=== PATIENT | male | born 1940 | race Caucasian/White ===

== ENCOUNTER 2020-12-24 11:33 | Emergency (ER) | payer MEDICARE, OTHER ==
[~2020-12-24 11:33] MED LIST: ARICEPT10 MG PO; ASPIRIN81 MG PO; ATORVASTATIN CA80 MG PO; CEPHALEXIN500 MG PO; ELIQUIS5 MG PO; FLOMAX 0.4 MG0.4 MG PO; IBUPROFEN600 MG PO; KEFLEX CAP 500500 MG PO; MECLIZINE HCL12.5 MG PO; OMEPRAZOLE20 M1 PO; PAXIL20 MG PO; PERCOCET 5-3251 EACH PO; ROWEEPRA XR500 MG PO; SINGULAIR10 MG PO; UROXATRAL10 MG PO; ZOFRAN ODT 4 MG4 MG SL
[2020-12-24] MEDS ORDERED: ERYTHROMYCIN O3.5 GM OD (14:58)
[2020-12-24] MEDS ORDERED: CLEOCIN HCL300 MG PO (14:58)
== END 2020-12-24 15:43 | disposition home or self-care (01) ==
LOC: ER1 11:33
DX: H04.301 Unspecified dacryocystitis of right lacrimal passage (principal); E78.5 Hyperlipidemia, unspecified; Z86.73 Personal history of transient ischemic attack (TIA), and cerebral infarction without residual deficits; Z88.8 Allergy status to other drugs, medicaments and biological substances; Z87.891 Personal history of nicotine dependence
CPT/HCPCS: 99283

== ENCOUNTER 2021-03-29 20:45 | Emergency (ER) | payer MEDICARE, MEDICAID ==
[~2021-03-29 20:45] MED LIST changes: +CLEOCIN HCL300 MG PO; +ERYTHROMYCIN O3.5 GM OD
[2021-03-29 22:57] LABS: HEMOGLOBIN 8.4 gm/dl (14.0-17.5); RED BLOOD COUNT 2.97 M/UL (4.20-5.50); WHITE BLOOD COUNT 7.4 K/UL (4.5-11.0)
[2021-03-30] MEDS ORDERED: OMNICEF 300 MG300 MG PO (00:58)
[2021-03-30] MEDS ORDERED: CORTISPORIN OTI10 ML EARRT (00:58)
[2021-03-30] MEDS ORDERED: ZOFRAN ODT 4 MG4 MG PO (00:58)
== END 2021-03-30 01:15 | disposition home or self-care (01) ==
LOC: ER1 20:45
PROVIDERS: Physician Assistant
DX: N39.0 Urinary tract infection, site not specified (principal); H60.91 Unspecified otitis externa, right ear; I48.91 Unspecified atrial fibrillation; Z86.16 Personal history of COVID-19; Z88.8 Allergy status to other drugs, medicaments and biological substances
CPT/HCPCS: 80053; 81001; 83690; 85025; 87077; 87086; 87186; 96374; 99284; J2405; J7030

== ENCOUNTER → 2021-04-17 | Outpatient (CLI) | payer MEDICARE, OTHER ==
[~2021-04-17] MED LIST changes: +CORTISPORIN OTI10 ML EARRT; +OMNICEF 300 MG300 MG PO; +ZOFRAN ODT 4 MG4 MG PO
== END ==
LOC: US 09:14
DX: I77.811 Abdominal aortic ectasia (principal)
CPT/HCPCS: 93979

== ENCOUNTER 2021-10-14 12:07 | Inpatient (IN) | payer MEDICARE, OTHER ==
[~2021-10-14] VITALS: Ht 167.6 cm; Wt 64.9 kg
[~2021-10-14 12:07] MED LIST changes: +LEVETIRACETAM500 MG PO; -ROWEEPRA XR500 MG PO
[2021-10-14 13:26] LABS: HEMOGLOBIN 8.2 gm/dl (14.0-17.5); RED BLOOD COUNT 3.55 M/UL (4.20-5.50); WHITE BLOOD COUNT 15.9 K/UL (4.5-11.0)
[2021-10-14] MEDS ORDERED: ONDANSETRON HCL4 MG PO (15:58)
[2021-10-14] MEDS ORDERED: QUETIAPINE FUMA25 MG PO (15:58)
[2021-10-14] MEDS ORDERED: MELATONIN 10 M1 EACH PO (15:59)
[2021-10-15 04:07] LABS: RED BLOOD COUNT 2.81 M/UL (4.20-5.50); WHITE BLOOD COUNT 11.8 K/UL (4.5-11.0)
[2021-10-15 04:11] LABS: HEMOGLOBIN 6.6 gm/dl (14.0-17.5)
[2021-10-15 16:28] LABS: HEMOGLOBIN 7.4 gm/dl (14.0-17.5)
[2021-10-16 01:28] LABS: HEMOGLOBIN 8.7 gm/dl (14.0-17.5)
[2021-10-16 02:06] LABS: ACINETOBACTER BAUMANNII Not Detected (Negative); CANDIDA ALBICANS Not Detected (Negative); CANDIDA KRUSEI Not Detected (Negative); CANDIDA TROPICALIS Not Detected (Negative); ENTEROCOCCUS Not Detected (Negative); ESCHERICHIA COLI Not Detected (Negative); HAEMOPHILUS INFLUENZAE Not Detected (Negative); KLEBSIELLA OXYTOCA Not Detected (Negative); KLEBSIELLA PNEUMONIAE Not Detected (Negative); KPC-CARBAPENEM-RESISTANCE GENE Not Detected (Negative); PROTEUS Not Detected (Negative); PSEUDOMONAS AERUGINOSA Not Detected (Negative); SERRATIA MARCESANS Not Detected (Negative); STAPHYLOCOCCUS AUREUS Not Detected (Negative); STREP AGALACTIAE (GROUP B) Not Detected (Negative); STREP PYOGENES (GROUP A) Not Detected (Negative); STREPTOCOCCUS Not Detected (Negative); vanA/B (VANCOMYCIN RESIST GENE Not Detected (Negative)
[2021-10-16 03:30] LABS: mecA (METHICILLIN RESIST GENE DETECTED (Negative)
[2021-10-16 03:31] LABS: STAPHYLOCOCCUS DETECTED (Negative)
[2021-10-16 08:52] LABS: HEMOGLOBIN 9.9 gm/dl (14.0-17.5)
[2021-10-16 16:15] LABS: HEMOGLOBIN 9.8 gm/dl (14.0-17.5)
[2021-10-17] MEDS ORDERED: AUGMENTIN 875-1 EACH PO (12:56)
== END 2021-10-17 15:13 | disposition home or self-care (01) | DRG 100 ==
LOC: ER1 12:07 → CDU 15:18 → M/S 10-15 18:40
PROVIDERS: Emergency Medicine; Physician Assistant Medical; ADMIT Internal Medicine
DX: R56.9 Unspecified convulsions (principal); J69.0 Pneumonitis due to inhalation of food and vomit; J96.01 Acute respiratory failure with hypoxia; N17.9 Acute kidney failure, unspecified; F03.90 Unspecified dementia, unspecified severity, without behavioral disturbance, psychotic disturbance, mood disturbance, and anxiety; I48.0 Paroxysmal atrial fibrillation; K21.9 Gastro-esophageal reflux disease without esophagitis; H54.8 Legal blindness, as defined in USA; N40.0 Benign prostatic hyperplasia without lower urinary tract symptoms; D50.9 Iron deficiency anemia, unspecified; Z20.822 Contact with and (suspected) exposure to COVID-19; Z98.49 Cataract extraction status, unspecified eye; Z86.73 Personal history of transient ischemic attack (TIA), and cerebral infarction without residual deficits; Z88.8 Allergy status to other drugs, medicaments and biological substances; Z82.3 Family history of stroke; Z82.49 Family history of ischemic heart disease and other diseases of the circulatory system; D49.6 Neoplasm of unspecified behavior of brain; Z66 Do not resuscitate; Z79.01 Long term (current) use of anticoagulants; E86.0 Dehydration
CPT/HCPCS: 36415; 36430; 36600; 70450; 70551; 71045; 80048; 80053; 81001; 82550; 82553; 82803; 83605; 83735; 83874; 84439; 84443; 84484; 85014; 85018; 85025; 85027; 86850; 86900; 86901; 86920; 87040; 87077; 87150; 93005; 96374; 96375; 99285; J1953; J2543; J3370; J7070; P9016; U0002

== ENCOUNTER 2021-12-09 21:24 | Inpatient (IN) | payer MEDICARE, OTHER ==
[~2021-12-09] VITALS: Ht 182.9 cm; Wt 68.0 kg
[~2021-12-09 21:24] MED LIST changes: +AUGMENTIN 875-1 EACH PO; +MELATONIN 10 M1 EACH PO; +ONDANSETRON HCL4 MG PO; +QUETIAPINE FUMA25 MG PO
[2021-12-09 22:09] LABS: HEMOGLOBIN 10.2 gm/dl (14.0-17.5); RED BLOOD COUNT 3.75 M/UL (4.20-5.50); WHITE BLOOD COUNT 12.8 K/UL (4.5-11.0)
[2021-12-10] MEDS ORDERED: PROAIR HFA8.5 GM INH (10:59)
[2021-12-11 04:15] LABS: HEMOGLOBIN 8.4 gm/dl (14.0-17.5); RED BLOOD COUNT 3.15 M/UL (4.20-5.50); WHITE BLOOD COUNT 7.1 K/UL (4.5-11.0)
[2021-12-12 06:52] LABS: HEMOGLOBIN 8.4 gm/dl (14.0-17.5); RED BLOOD COUNT 3.12 M/UL (4.20-5.50); WHITE BLOOD COUNT 5.9 K/UL (4.5-11.0)
[2021-12-13 04:19] LABS: HEMOGLOBIN 8.5 gm/dl (14.0-17.5); RED BLOOD COUNT 3.16 M/UL (4.20-5.50); WHITE BLOOD COUNT 6.4 K/UL (4.5-11.0)
[2021-12-13] MEDS ORDERED: OMNICEF 300 MG300 MG PO (13:44)
== END 2021-12-13 15:50 | disposition home or self-care (01) | DRG 871 ==
LOC: ER1 21:24 → CDU 12-10 → MED SURG 4 12-10 12:05
PROVIDERS: Emergency Medicine; Internal Medicine; ADMIT Internal Medicine
DX: A41.50 Gram-negative sepsis, unspecified (principal); E43 Unspecified severe protein-calorie malnutrition; N30.00 Acute cystitis without hematuria; J96.11 Chronic respiratory failure with hypoxia; F01.51 Vascular dementia, unspecified severity, with behavioral disturbance; Z20.822 Contact with and (suspected) exposure to COVID-19; J44.9 Chronic obstructive pulmonary disease, unspecified; N28.89 Other specified disorders of kidney and ureter; N40.0 Benign prostatic hyperplasia without lower urinary tract symptoms; D63.1 Anemia in chronic kidney disease; R65.20 Severe sepsis without septic shock; H47.619 Cortical blindness, unspecified side of brain; N18.30 Chronic kidney disease, stage 3 unspecified; K21.9 Gastro-esophageal reflux disease without esophagitis; I48.0 Paroxysmal atrial fibrillation; Z87.891 Personal history of nicotine dependence; Z86.73 Personal history of transient ischemic attack (TIA), and cerebral infarction without residual deficits; Z99.81 Dependence on supplemental oxygen; Z79.01 Long term (current) use of anticoagulants; Z91.19 Patient's noncompliance with other medical treatment and regimen; Z98.890 Other specified postprocedural states; Z83.3 Family history of diabetes mellitus; Z98.49 Cataract extraction status, unspecified eye; Z68.21 Body mass index [BMI] 21.0-21.9, adult
CPT/HCPCS: 0240U; 36415; 71045; 80048; 80053; 80307; 81001; 82140; 82550; 82553; 82607; 82746; 83605; 83735; 84100; 84484; 85025; 86140; 87040; 87077; 87086; 87186; 93005; 96365; 97116; 97116-GP-CQ; 97161; 97166; 97535; 99285; J0696

== ENCOUNTER 2022-05-16 17:48 | Emergency (ER) | payer MEDICARE, OTHER ==
[~2022-05-16 17:48] MED LIST changes: +PROAIR HFA8.5 GM INH
[2022-05-16 18:05] LABS: HEMOGLOBIN 9.8 gm/dl (14.0-17.5); RED BLOOD COUNT 3.67 M/UL (4.20-5.50); WHITE BLOOD COUNT 8.7 K/UL (4.5-11.0)
[2022-05-16] MEDS ORDERED: ZOFRAN 4 MG TAB4 MG PO (21:17)
== END 2022-05-16 21:20 | disposition home or self-care (01) ==
LOC: ER1 17:48
PROVIDERS: Nurse Practitioner
DX: R11.2 Nausea with vomiting, unspecified (principal); I25.2 Old myocardial infarction; Z88.8 Allergy status to other drugs, medicaments and biological substances
CPT/HCPCS: 71045; 80053; 81001; 82550; 82553; 83690; 84484; 85025; 87086; 93005; 99284